=== PATIENT | male | born 1970 | race Caucasian/White ===

== ENCOUNTER → 2021-01-12 08:18 | Outpatient (CLI) | payer OTHER, SELFPAY ==
--- NOTE | 2021-01-12 | DI.MRI.S_ITS ---
PROCEDURE: MR SHOULDER RT W CON INDICATIONS: Rotator cuff syndrome TECHNIQUE: After the administration of 12 mL of dilute intra-articular Gadolinium contrast, oblique coronal T1 and T2 spin echo with fat saturation, oblique sagittal T1 spin echo with and without fat saturation, oblique sagittal T2 fast spin echo with fat saturation, axial T1 spin echo with fat saturation through the shoulder. COMPARISON: None. FINDINGS: Image quality: Excellent. Rotator cuff: Tendinosis and mild to moderate articular and bursal surface partial thickness tear involving distal supraspinatus is seen with possible focal full-thickness perforation involving posterior fibers of distal supraspinatus at its insertion on the humeral head and small amount of contrast extending to subacromial subdeltoid bursa. Distal infraspinatus tendinosis and low-grade articular surface partial-thickness tear is seen. Distal subscapularis tendon is intact. No rotator cuff muscle atrophy on sagittal images. Bones and bursae: No bone marrow contusions or fractures. Mild to moderate acromioclavicular joint osteoarthritic changes are seen with downward osteophyte formation depressing the musculotendinous junction of supraspinatus.. Capsule and soft tissues: There is suggestion of focal superior labral tear at 12:00 p.m. Position with contrast extension and contour irregularity. The glenohumeral ligaments appear intact. The long head of the biceps tendon demonstrates normal location and morphology. The rotator interval appears normal, without fibrosis. The coracohumeral ligament is of normal thickness. No intra-articular bodies. IMPRESSION: 1. Tendinosis and low to moderate grade articular and bursal surface partial thickness tear involving distal supraspinatus with focal full-thickness perforation involving most posterior fibers of distal supraspinatus at its insertion on the humeral head and small amount of injected contrast material extending to subacromial subdeltoid bursa. Distal infraspinatus tendinosis and low-grade articular surface partial-thickness tear. 2. Moderate acromioclavicular joint osteoarthritis. 3. Suggestion of focal superior labral tear at 12:00 p.m. Position. Dictated by: Dre Hodges M.D. on 01/12/2021 at 9:48 Approved by: Dre Hodges M.D. on 01/12/2021 at 9:51
--- NOTE | 2021-01-12 | DI.RAD.S_ITS ---
PROCEDURE: FL ARTHROGRAM SHOULDER RT INDICATIONS: Rotator cuff syndrome COMPARISON: None. TECHNIQUE: The indications, alternatives, benefits, risks, and complications of the procedure were explained to the patient. Written informed consent was obtained and placed in the chart. The shoulder was examined fluoroscopically and a site for needle placement chosen for entry into the glenohumeral joint from an anterior approach. The skin was prepped and draped in a sterile fashion, and 1% lidocaine infiltrated from skin down to joint capsule. A spinal needle was inserted into the glenohumeral joint, and a small amount of iodinated contrast media injected to confirm intra-articular placement of the needle tip. This was followed by approximately 12 mL dilute solution of a gadolinium containing MR contrast agent. The needle was removed and a dressing was applied. The patient was given postprocedural instructions and sent to the MR suite for MR imaging. FINDINGS: A single fluoroscopic spot image demonstrates intra-articular location of injected iodinated contrast. IMPRESSION: Successful fluoroscopically guided administration of dilute Gadolinium solution into the shoulder joint for MR arthrogram. Dictated by: Marlee Powell MD, PhD on 01/12/2021 at 9:52 Approved by: Marlee Powell MD, PhD on 01/12/2021 at 9:52
== END ==
PROVIDERS: Referring Provider Counselor Mental Health; Visit Provider Counselor Mental Health
DX: M75.111 Incomplete rotator cuff tear or rupture of right shoulder, not specified as traumatic (principal); M19.011 Primary osteoarthritis, right shoulder
CPT/HCPCS: 23350; 73040; 73222; 77002